=== PATIENT | female | born 1940 | race Caucasian/White ===

== ENCOUNTER 2016-05-28 11:21 | Emergency (ER) | payer OTHER ==
[~2016-05-28] VITALS: Ht 149.9 cm; Wt 65.2 kg
[~2016-05-28 11:21] MED LIST: ACETAMINOPHEN325 M1 PO; ALEVE220 MG PO; ALPRAZOLAM0.25 MG PO; AMOXICILLIN500 MG PO; ASPIR-LOW81 MG PO; AVELOX400 MG PO; Advair HFA 115/21 IH; Aspirin E.C. PO; DELTASONE10 MG PO; DIAZEPAM10 MG PO; DUONEB3 ML IH; Diflucan PO; ENDOCET 5-3251 EACH PO; NAPROXEN500 MG PO; NORCO 5/3251 TABLET PO; OYSTER SHELL W1 EACH PO; Omega III EPA + DHA PO; Oyst-Cal D, Oscal W/ PO; PROTONIX40 MG PO; SPIRIVA1 INHALATI IH; THEO-DUR,THEOC200 MG PO; Tylenol Regular Stre PO; ULTRAM50 MG PO; VALIUM10 MG PO; VYTORIN 10/21 TABLET PO; WELLBUTRIN SR150 MG PO; ZITHROMAX Z-PA250 MG PO
[2016-05-28 12:14] LABS: MCH 29.1 PG (29.0-34.0); MCHC 33.6 G/DL (30.0-36.0); MCV 86.8 FL (83-99); PLATELET COUNT 268 K/uL (156-360); RBC DIS.WIDTH-SD 43.3 % (39-53); RED BLOOD COUNT 4.84 M/uL (3.80-5.20); WHITE BLOOD COUNT 10.8 K/uL (4.1-10.2)
[2016-05-28 12:31] LABS: CHLORIDE 107 mEq/L (99-109); POTASSIUM 4.5 mEq/L (3.7-5.4); SODIUM 142 mEq/L (136-147)
[2016-05-28 12:33] LABS: GLUCOSE 105 mg/dL (70-99)
[2016-05-28 12:34] LABS: ANION GAP 10 MEQ/L (2-14)
[2016-05-28 12:36] LABS: GFR ESTIMATE (CALCULATED) 42 mL/min/
[2016-05-28 12:37] LABS: UREA NITROGEN (BUN) 27 mg/dL (9-23)
[2016-05-28 12:37] LABS: ADD MIUA? YES; BILIRUBIN NEGATIVE; BLOOD NEGATIVE; COLOR YELLOW ((YELLOW)); GLUCOSE (STRIP) NEGATIVE; KETONES NEGATIVE; LEUKOCYTES NEGATIVE; NITRITE NEGATIVE; PH, URINE 5.5 (5-8); PROTEIN (STRIP) TRACE; SPECIFIC GRAVITY 1.017 (1.000-1.030); UROBILINOGEN 0.2 MG/DL (0.2-1.0)
[2016-05-28 12:41] LABS: TROP-I INTERPRETATION NEGATIVE; TROPONIN-I < 0.01 ng/mL (0.0-0.30)
[2016-05-28 13:14] LABS: RED BLOOD CELLS NONE SEEN /HPF (0-5); WHITE BLOOD CELLS RARE /HPF (0-5)
[2016-05-28 13:15] LABS: BACTERIA NONE SEEN /HPF; CASTS PRESENT /LPF; CRYSTALS NONE SEEN; EPITHELIAL CELLS RARE /HPF; MUCUS NONE SEEN /LPF
[2016-05-28 14:03] LABS: INFLUENZA A VIRAL ANTIGEN NEGATIVE; INFLUENZA B VIRAL ANTIGEN NEGATIVE
[2016-05-28 14:40] VITALS: BP 132/58
== END 2016-05-28 14:46 | disposition home or self-care (01) ==
LOC: EME 11:21
PROVIDERS: Nurse Practitioner Family
DX: J06.9 Acute upper respiratory infection, unspecified (principal); J40 Bronchitis, not specified as acute or chronic; J45.909 Unspecified asthma, uncomplicated; J44.9 Chronic obstructive pulmonary disease, unspecified; I10 Essential (primary) hypertension; K21.9 Gastro-esophageal reflux disease without esophagitis; Z86.73 Personal history of transient ischemic attack (TIA), and cerebral infarction without residual deficits; Z88.5 Allergy status to narcotic agent; Z88.8 Allergy status to other drugs, medicaments and biological substances; Z88.2 Allergy status to sulfonamides; Z91.041 Radiographic dye allergy status; Z88.1 Allergy status to other antibiotic agents; Z91.048 Other nonmedicinal substance allergy status
CPT/HCPCS: 71020; 80048; 81003; 84484; 85027; 87502; 93005; 94640; 99281; 99284; J7030

== ENCOUNTER 2016-08-05 08:49 | Inpatient (IN) | payer OTHER ==
[~2016-08-05] VITALS: Ht 149.9 cm; Wt 53.1 kg
[2016-08-05 10:32] LABS: EOSINOPHIL (%) 6.5 % (0-5); EOSINOPHIL COUNT 0.3 K/uL (0-0.3); HEMATOCRIT 34.9 % (36.0-46.0); IMMATURE GRANULOCYTE (%) 0.2 % (0.0-0.7); INSTRUMENT ABS NEUTROPHIL CT 2.2 K/uL; LYMPHOCYTE COUNT 1.5 K/uL (1.0-2.8); MCH 28.9 PG (29.0-34.0); MCHC 32.1 G/DL (30.0-36.0); MCV 90.2 FL (83-99); MEAN PLAT.VOLUME 9.9 uM^3 (9.5-12.4); MONOCYTE (%) 11.4 % (3-12); MONOCYTE COUNT 0.5 K/uL (0-0.8); NEUTROPHIL (%) 47.8 % (45-76); NEUTROPHIL COUNT 2.2 K/uL (1.8-6.4); PLATELET COUNT 240 K/uL (156-360); RBC DIS.WIDTH-CV 13.3 % (11.8-14.6); RBC DIS.WIDTH-SD 43.4 % (39-53); RED BLOOD COUNT 3.87 M/uL (3.80-5.20); WHITE BLOOD COUNT 4.5 K/uL (4.1-10.2)
[2016-08-05] MEDS ORDERED: PRAVACHOL40 MG PO (10:41)
[2016-08-05 10:44] LABS: CHLORIDE 111 mEq/L (99-109); POTASSIUM 4.3 mEq/L (3.7-5.4); SODIUM 143 mEq/L (136-147)
[2016-08-05 10:47] LABS: GLUCOSE 98 mg/dL (70-99)
[2016-08-05 10:48] LABS: ANION GAP 8 MEQ/L (2-14)
[2016-08-05 10:49] LABS: TOTAL BILIRUBIN 0.3 mg/dL (0.0-1.0)
[2016-08-05 10:50] LABS: ALKALINE PHOSPHATASE 74 IU/L (3-129); GFR ESTIMATE (CALCULATED) 46 mL/min/
[2016-08-05 10:51] LABS: UREA NITROGEN (BUN) 30 mg/dL (9-23)
[2016-08-05 10:54] LABS: LIPASE 31 U/L (1.0-51.0)
[2016-08-05 11:58] LABS: ADD MIUA? NO; BILIRUBIN NEGATIVE; BLOOD NEGATIVE; COLOR STRAW ((YELLOW)); GLUCOSE (STRIP) NEGATIVE; KETONES NEGATIVE; LEUKOCYTES NEGATIVE; NITRITE NEGATIVE; PROTEIN (STRIP) NEGATIVE; SPECIFIC GRAVITY 1.013 (1.000-1.030); UROBILINOGEN 0.2 MG/DL (0.2-1.0)
[2016-08-05] MEDS ORDERED: BENTYL20 MG PO (12:39)
[2016-08-05] MEDS ORDERED: OMEPRAZOLE40 M1 PO (12:39)
[2016-08-05] MEDS ORDERED: DIOVAN160 MG PO (12:40)
[2016-08-05] MEDS ORDERED: PROAIR HFA8.5 GM IH (12:41)
[2016-08-05] MEDS ORDERED: ALEVE220 M2 PO (12:42)
[2016-08-05] MEDS ORDERED: DUONEB 2.5-0.5 M3 ML AEROSOL (13:12)
[2016-08-05 21:06] VITALS: BP 150/80
[2016-08-05 22:56] VITALS: BP 164/78
[2016-08-06 06:30] LABS: EOSINOPHIL COUNT 0.3 K/uL (0-0.3); HEMATOCRIT 33.9 % (36.0-46.0); INSTRUMENT ABS NEUTROPHIL CT 1.6 K/uL; LYMPHOCYTE COUNT 1.8 K/uL (1.0-2.8); MCH 28.3 PG (29.0-34.0); MCHC 31.9 G/DL (30.0-36.0); MCV 88.7 FL (83-99); MEAN PLAT.VOLUME 9.9 uM^3 (9.5-12.4); MONOCYTE (%) 11.9 % (3-12); MONOCYTE COUNT 0.5 K/uL (0-0.8); NEUTROPHIL (%) 38.3 % (45-76); NEUTROPHIL COUNT 1.6 K/uL (1.8-6.4); PLATELET COUNT 219 K/uL (156-360); RBC DIS.WIDTH-CV 13.3 % (11.8-14.6); RBC DIS.WIDTH-SD 43.1 % (39-53); RED BLOOD COUNT 3.82 M/uL (3.80-5.20); WHITE BLOOD COUNT 4.3 K/uL (4.1-10.2)
[2016-08-06 06:59] LABS: ANION GAP 8 MEQ/L (2-14); CHLORIDE 111 MEQ/L (99-109); GFR ESTIMATE (CALCULATED) 51 mL/min/; GLUCOSE 90 mg/dL (70-99); SAMPLE HEMOLYSIS CHECK 0; SAMPLE ICTERIC CHECK 0; SAMPLE LIPEMIA CHECK 0; SODIUM 145 MEQ/L (136-147); UREA NITROGEN (BUN) 20 mg/dL (9-23)
[2016-08-06 08:22] VITALS: BP 153/70
[2016-08-06 15:41] VITALS: BP 154/93
[2016-08-06 18:34] VITALS: BP 174/77
[2016-08-06 23:36] VITALS: BP 124/69
[2016-08-07 06:05] LABS: EOSINOPHIL (%) 6.4 % (0-5); EOSINOPHIL COUNT 0.3 K/uL (0-0.3); HEMATOCRIT 32.2 % (36.0-46.0); IMMATURE GRANULOCYTE (%) 0.2 % (0.0-0.7); INSTRUMENT ABS NEUTROPHIL CT 1.9 K/uL; LYMPHOCYTE COUNT 1.5 K/uL (1.0-2.8); MCH 28.7 PG (29.0-34.0); MCHC 32.6 G/DL (30.0-36.0); MEAN PLAT.VOLUME 9.2 uM^3 (9.5-12.4); MONOCYTE (%) 12.1 % (3-12); MONOCYTE COUNT 0.5 K/uL (0-0.8); NEUTROPHIL (%) 45.7 % (45-76); NEUTROPHIL COUNT 1.9 K/uL (1.8-6.4); PLATELET COUNT 205 K/uL (156-360); RBC DIS.WIDTH-CV 13.3 % (11.8-14.6); RBC DIS.WIDTH-SD 42.9 % (39-53); RED BLOOD COUNT 3.66 M/uL (3.80-5.20); WHITE BLOOD COUNT 4.2 K/uL (4.1-10.2)
[2016-08-07 06:30] LABS: ANION GAP 8 MEQ/L (2-14); CHLORIDE 111 MEQ/L (99-109); GFR ESTIMATE (CALCULATED) 57 mL/min/; GLUCOSE 106 mg/dL (70-99); POTASSIUM 3.7 MEQ/L (3.7-5.4); SAMPLE HEMOLYSIS CHECK 0; SAMPLE ICTERIC CHECK 0; SAMPLE LIPEMIA CHECK 0; SODIUM 143 MEQ/L (136-147); UREA NITROGEN (BUN) 13 mg/dL (9-23)
[2016-08-07 06:59] VITALS: BP 133/75
[2016-08-07] MEDS ORDERED: PANTOPRAZOLE SO40 MG PO (10:31)
[2016-08-07] MEDS ORDERED: LOPERAMIDE2 MG PO (10:31)
[2016-08-07 13:01] LABS: C DIFF TOXIN NEGATIVE (NEGATIVE)
[2016-08-07 13:02] LABS: PROBE CHECK PASS; SPECIMEN PROCESSING CONTROL PASS
== END 2016-08-07 13:49 | disposition home or self-care (01) | DRG 392 ==
LOC: EME 08:49 → 5EAST 11:46 → EDOF 11:46 → 5EAST 19:53
PROVIDERS: Emergency Medicine; Family Medicine; Internal Medicine Gastroenterology
PROC: 0DB68ZX Excision of Stomach, Via Natural or Artificial Opening Endoscopic, Diagnostic (ICD-10-PCS; principal; 2016-08-06)
DX: R10.31 Right lower quadrant pain (principal); R93.8 Abnormal findings on diagnostic imaging of other specified body structures; R10.13 Epigastric pain; R13.10 Dysphagia, unspecified; R63.4 Abnormal weight loss; K57.10 Diverticulosis of small intestine without perforation or abscess without bleeding; K44.9 Diaphragmatic hernia without obstruction or gangrene; K25.9 Gastric ulcer, unspecified as acute or chronic, without hemorrhage or perforation; K21.9 Gastro-esophageal reflux disease without esophagitis; J44.9 Chronic obstructive pulmonary disease, unspecified; I10 Essential (primary) hypertension; E78.5 Hyperlipidemia, unspecified; I25.10 Atherosclerotic heart disease of native coronary artery without angina pectoris; G62.9 Polyneuropathy, unspecified; Z87.891 Personal history of nicotine dependence; Z88.1 Allergy status to other antibiotic agents; Z88.2 Allergy status to sulfonamides; Z88.5 Allergy status to narcotic agent; Z91.041 Radiographic dye allergy status; Z79.82 Long term (current) use of aspirin
CPT/HCPCS: 74183; 80048; 80053; 81003; 83690; 85025; 87493; 87506; 88305; 88342 TC; 99202; 99281; 99285; J7030; S0028